=== PATIENT | male | born 1960 | race Caucasian/White ===

== ENCOUNTER → 2017-01-03 | Outpatient (CLI) | payer BC ==
--- NOTE | 2017-01-03 16:54 | US ---
EXAMINATION TYPE: US kidneys/renal and bladder DATE OF EXAM: 01/03/2017 4:10 PM COMPARISON: NONE CLINICAL HISTORY: R10.9 Rt flank pain. 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 No nephrolithiasis is seen. No faiza s are identified. The urinary bladder is anechoic. Bilateral ureteral jets are seen. Inferior impression on the urinary bladder likely due to prostate enlargement IMPRESSION: Prostate enlargement.
== END | disposition home or self-care (01) ==
LOC: RADUSWWP 15:09
PROVIDERS: ATTEND Urology
DX: N40.0 Benign prostatic hyperplasia without lower urinary tract symptoms (principal)
CPT/HCPCS: 76770

== ENCOUNTER → 2018-01-08 | Outpatient (CLI) | payer BC ==
--- NOTE | 2018-01-08 14:30 | MR ---
EXAMINATION TYPE: MR cervical spine wo con DATE OF EXAM: 01/08/2018 COMPARISON: NONE HISTORY: Hypreflexia, early myelopathy TECHNIQUE: Multiplanar, multisequence images of the cervical spine were acquired. C2-C3: Small amount of central focal protrusion is present with mild to moderate anterior thecal sac compression nearing the spinal cord. No cord deformity is evident. No spinal canal stenosis present. C3-C4: There is a broad-based disc bulge with anterior thecal sac compression. No AP spinal canal desi nosis is present. Cord contact is present. Minimal cord flattening may be present. No spinal canal st enosis is present. C4-C5: Broad-based disc bulge is present into the central and left paracentral region. This is in juvencio se approximation with the spinal cord. Some exiting left nerve root displacement is suspected. Severe left and moderate right foraminal narrowing is present. C5-C6: Left paracentral disc herniation is present with broad base extending from the central to left paracentral regions. This has cord contact. Cord deformity is not present. No AP spinal canal stenos is present. Neural foramen is narrowed on the left. C6-C7: There is uncovertebral joint hypertrophy with mild bilateral foraminal narrowing. No spinal ca nal stenosis. No focal disc herniation is evident. C7-T1: No evidence for degenerative disc disease. No disc bulge/herniation or protrusion. No Canal stenosis. Foramina are patent bilaterally. Cervical segments are intact. There is normal alignment. Cervical spinal cord is of normal signal. Craniovertebral junction relationships are within normal limits. IMPRESSION: 1. Left paracentral disc bulging in disc herniation at C5-6 and C4-5. C5-6 this has cord deformity. C ord contact is present at these levels. 2. Central broad-based disc bulge C3-4 with cord contact and minimal cord flattening. 3. Suspected displacement of the exiting nerve root at C4-5 on the left. 4. Multilevel foraminal stenosis most notably C4-5
== END | disposition home or self-care (01) ==
LOC: RADMRIMAIN 13:08
PROVIDERS: ATTEND Psychiatry & Neurology Neurology
DX: M99.71 Connective tissue and disc stenosis of intervertebral foramina of cervical region (principal); M50.21 Other cervical disc displacement, high cervical region; G95.89 Other specified diseases of spinal cord; R29.2 Abnormal reflex
CPT/HCPCS: 72141

== ENCOUNTER → 2018-02-16 | Outpatient (CLI) | payer BC ==
--- NOTE | 2018-02-16 14:46 | MR ---
EXAMINATION TYPE: MR lumbar spine wo con DATE OF EXAM: 02/16/2018 COMPARISON: NONE HISTORY: Spinal stenosis, lumbar region TECHNIQUE: Multiplanar, multisequence images of the lumbar spine were acquired. FINDINGS: The lumbar spine maintains normal vertebral body height and alignment. Bone marrow signal is unremark able other than a T1 and T2 hyperintense L4 vertebral body hemangioma. Multilevel mild disc desiccati on is seen. Conus medullaris is unremarkable terminating at L2. There is an infrarenal distal abdomin al aortic aneurysm proximal to the aortoiliac bifurcation measuring up to 3.1 x 3.0 cm. L1-L2: There is a small right eccentric broad-based disc bulge without spinal canal stenosis or neuro foraminal narrowing. L2-L3: There is a small broad-based disc bulge without spinal canal stenosis or neural foraminal narr owing. L3-L4: Normal disc appearance without desiccation. No herniation, protrusion or disc bulging. No ca nal stenosis is present. Foramina are patent bilaterally. L4-L5: There is a left eccentric broad-based disc bulge and facet arthropathy resulting in mild to mo derate left neural foraminal narrowing. Spinal canal and right neural foramen are patent. L5-S1: There is a broad-based disc bulge resulting in minimal bilateral neural foraminal narrowing. S mela canal is patent. Mild facet arthropathy is also seen. IMPRESSION: 1. No evidence of focal disc herniation or spinal canal stenosis. 2. Multilevel mild degenerative disc disease resulting in mild to moderate left neural foraminal narr owing at L4-L5 on the left and mild bilateral neural foraminal narrowing at L5-S1. 3. Distal abdominal aortic aneurysm measuring up to 3.1 x 3.0 cm. This is partially visualized and co uld be further evaluated with ultrasound or CT.
[2018-02-16 19:12] LABS: Protein, Total 6.6 g/dL (6.2-8.2)
[2018-02-16 19:33] LABS: Folate, Serum 15.3 ng/mL
[2018-02-18 14:31] LABS: Albumin 4.18 g/dL (3.80-4.90); Gamma Globulin 0.76 g/dL (0.70-1.50)
== END | disposition home or self-care (01) ==
LOC: RADMRIMAIN 12:50
PROVIDERS: ATTEND Psychiatry & Neurology Neurology
DX: M99.73 Connective tissue and disc stenosis of intervertebral foramina of lumbar region (principal); M51.36 Other intervertebral disc degeneration, lumbar region; R90.82 White matter disease, unspecified; M54.40 Lumbago with sciatica, unspecified side
CPT/HCPCS: 36415; 72148; 82550; 82607; 82746; 84165; 86038

== ENCOUNTER 2018-10-16 10:01 | Day surgery (SDC) | payer BC ==
[2018-10-14 14:26] VITALS: BMI 21.6
[~2018-10-16 10:01] MED LIST: LACTATED RINGERS 1,000 ML IV SCH
[2018-10-16 10:32] VITALS: TEMP 97.8
[2018-10-16] MEDS ORDERED: LIDOCAINE 1% 20 ML VIAL (10MG/ML) FOR IV START INTRADERMA ONE (10:38)
[2018-10-16] MEDS ORDERED: PROPOFOL 10 MG/ML 20 ML VIAL IV ONE (11:27)
[2018-10-16] MEDS ORDERED: LIDOCAINE 1% INJ 10MG/ML (20 ML MDV) ONE (11:27)
--- NOTE | 2018-10-16 11:35 | P.GSHP ---
History of Present Illness H&P Date: 10/16/18 Chief Complaint: GI bleed This is a 58-year-old male who presents today for colonoscopy. Patient's had issues with GI bleed. Past Medical History Past Medical History: COPD, CVA/TIA, GERD/Reflux, GI Bleed, Prostate Disorder Additional Past Medical History / Comment(s): HX:BPH,small vessel disease of the brain, TIA with residual lt arm weakenss, and "electric shock" sensation occurs from lt hip down to lt foot, lower back pain shooting down lt leg with hx recent falls d/t balance, recent bloody diarrhea, with mucous to stools History of Any Multi-Drug Resistant Organisms: None Reported Past Surgical History: Heart Catheterization, Hernia Repair Additional Past Surgical History / Comment(s): colonoscopy, hernia surgery x2 with mesh, skin graphs x3 on abdomen d/t barboza, graph taken from rt thigh Past Anesthesia/Blood Transfusion Reactions: No Reported Reaction Additional Past Anesthesia/Blood Transfusion Reaction / Comment(s): Pt has never received blood. Smoking Status: Current every day smoker - Past Family History Father Family Medical History: Myocardial Infarction (MT) Additional Family Medical History / Comment(s): Father of a MT at age 48 yrs. Mother Family Medical History: Cancer, Pneumonia Additional Family Medical History / Comment(s): Mother had bladder cancer. She at age 83 yrs of pneumonia. Medications and Allergies Home Medications Medication Instructions Recorded Confirmed Type Cholecalciferol [Vitamin D3] 2,000 unit PO DAILY 12/13/15 10/14/18 History Vitamin B Complex 1 cap PO DAILY 12/13/15 10/14/18 History Aspirin EC [Ecotrin Low Dose] 81 mg PO DAILY #30 tablet. 12/14/15 10/14/18 Rx Nitroglycerin Sl Tabs [Nitrostat] 0.4 mg SUBLINGUAL Q5M PRN #25 tab 12/14/15 Rx Clopidogrel [Plavix] 75 mg PO DAILY 10/14/18 10/14/18 History Gabapentin [Neurontin] 600 mg PO BID 10/14/18 10/16/18 History Ibuprofen [Motrin] 800 mg PO DAILY PRN 10/14/18 10/14/18 History Mirtazapine 7.5 mg PO HS 10/14/18 10/16/18 History Allergies Allergy/AdvReac Type Severity Reaction Status Date / Time No Known Allergies Allergy Verified 10/14/18 14:15 Surgical - Exam Vital Signs Temp Pulse Resp BP Pulse Ox 97.8 F 54 L 16 158/85 100 10/16/18 10:26 10/16/18 10:26 10/16/18 10:26 10/16/18 10:26 10/16/18 10:26 - General well developed, no distress - Eyes PERRL, normal ocular movement - ENT normal pinna - Neck no masses - Respiratory normal expansion - Cardiovascular Rhythm: regular - Abdomen Abdomen: soft, non tender Assessment and Plan Assessment: GI bleed. Perform colonoscopy.
[2018-10-16 11:53] VITALS: RESP 14
--- NOTE | 2018-10-16 12:16 | P.OP ---
Date of Procedure: 10/16/18 Preoperative Diagnosis: GI bleed Postoperative Diagnosis: Internal hemorrhoids Procedure(s) Performed: Colonoscopy Anesthesia: MAC Surgeon: Berlin Benedict Pathology: none sent Condition: stable Disposition: PACU Description of Procedure: The patient's placed on the endoscopy table in the lateral position. He received IV sedation. Digital rectal exam is performed which revealed general hemorrhoids. The prostate was symmetric without nodules. The flexible colonoscope was then placed patient anus and passed throughout the entire colon. The ileocecal valve was visualized. The cecum, ascending and transverse colon appeared normal. In the descending; there were no polyps or diverticula. Scope was then brought back the rectum and this appeared normal. Scope was withdrawn through the anus and there was internal hemorrhoids noted. There is no evidence of GI bleed. The patient's blood in stools presumably from his hemorrhoids. Patient top procedure well and was sent to recovery room stable condition.
[2018-10-16 12:35] VITALS: BP 129/80; PULSE 66
== END 2018-10-16 12:37 | disposition home or self-care (01) ==
LOC: ORWHC2ENDO 10:01
PROVIDERS: ATTEND Surgery
DX: K64.8 Other hemorrhoids (principal); J44.9 Chronic obstructive pulmonary disease, unspecified; K21.9 Gastro-esophageal reflux disease without esophagitis; N40.0 Benign prostatic hyperplasia without lower urinary tract symptoms; I69.334 Monoplegia of upper limb following cerebral infarction affecting left non-dominant side; M54.5 Low back pain; F17.200 Nicotine dependence, unspecified, uncomplicated; Z79.02 Long term (current) use of antithrombotics/antiplatelets; Z79.82 Long term (current) use of aspirin; Z79.899 Other long term (current) drug therapy; Z91.81 History of falling
CPT/HCPCS: 45378; J2001; J2704

== ENCOUNTER → 2019-04-08 | Outpatient (CLI) | payer BC ==
--- NOTE | 2019-04-08 15:22 | CT ---
EXAMINATION TYPE: CT abdomen pelvis w con DATE OF EXAM: 04/08/2019 COMPARISON: None INDICATION: LEFT LOWER QUAD PAIN DLP: 585.8 mGycm, Automated exposure control for dose reduction was used. CONTRAST: 100 mL of Isovue 300. Study performed with Oral Contrast TECHNIQUE: Axial images were obtained from above the diaphragm to the pubic rami in the axial plane a t 5 mm thick sections. Reconstructed images are reviewed on the computer in the coronal plane. FINDINGS: Limited CT sections are obtained the lung bases. There is an area of increased density and pneumonit is within the right middle lobe. Some underlying nodularity may be present. Correlate for pneumonia. Neoplasm is not excluded. This should be followed. Series 4 image 1. Some mild pneumonitis changes in the superior segment right lower lobe. Streak atelectasis is likely present at the right lung base.. CT ABDOMEN: Liver: Liver appears unremarkable. Small amount of ascites is adjacent to the inferior right lobe jamin er. Spleen: Normal Pancreas: Normal Adrenal glands: The adrenal glands are normal. Gallbladder: Normal Kidneys: No masses are evident. No hydronephrosis is present. No cysts are present. Delayed images were obtained through the kidneys, which remain unremarkable. Aorta: Vascular calcification is within the aorta. There is fusiform prominence of the infrarenal no rmal aorta with the greatest AP diameter just above the bifurcation is 3.2 cm. There is some mild fus iform prominence of the right common iliac artery measuring 1.4 cm. Inferior vena cava: Normal. CT PELVIS: Loops of bowel within the abdomen and pelvis are normal. There are loops of bowel which are incom pletely distended or lack oral contrast limiting their evaluation. Appendix: Normal as visualized. This appears to reside near a repaired right inguinal hernia Urinary bladder: Normal. Genitourinary structures: Prostate is prominent. Osseous structures: No suspicious lytic or sclerotic lesions. IMPRESSIONS: 1. There is some complex infiltrate in the right middle lobe which may have some underlying nodulari ty. Neoplasm is not excluded. Pneumonia should be considered. This area should be followed up. 2. Normal appendix near a repaired right inguinal hernia. 3. Fusiform prominence distal abdominal aorta measuring 3.2 cm some mild fusiform prominence of the r ight common iliac artery. 4. Prominent prostate. A Yellow level critical message alert has been initiated for Kellie Enamorado DO via the [employer] Critical Results System on 04/08/2019 3:19 PM. This message alert has been sent to Kellie Enamorado DO via the preferences provided by the clinician for the receipt of Radiology Critical Findings. Message ID [id number].
== END | disposition home or self-care (01) ==
LOC: RADCTMAIN 12:20
PROVIDERS: ATTEND Family Medicine
DX: R91.8 Other nonspecific abnormal finding of lung field (principal); R10.32 Left lower quadrant pain
CPT/HCPCS: 74177; Q9967

== ENCOUNTER 2019-09-11 22:41 | Emergency (ER) | payer BC ==
[2019-09-11 22:55] VITALS: RESP 18
--- NOTE | 2019-09-11 23:19 | CT ---
EXAMINATION TYPE: CT brain celine castillo DATE OF EXAM: 09/11/2019 COMPARISON: None HISTORY: Fall CT DLP: 1294.60 mGycm Automated exposure control for dose reduction was used. TECHNIQUE: CT scan of the head and cervical spine are performed without contrast. FINDINGS: Ventricles have normal size. There is no mass effect nor midline shift. There is no sign of intracranial hemorrhage. The calvarium is intact. There is some mucosal thickening in the ethmoid air cells. There is focal skin thickening over the left posterior temporal bone. There is mild right frontal scalp soft tissue swelling. There is some straightening of the cervical spine. There is degenerative disc space narrowing at C5-6 and C6-7 with spurring. Posterior elements are intact. Skull base is intact. I see no fracture. IMPRESSION: Spondylotic changes in the lower cervical spine. No fracture. No acute intracranial abnormality. Small right frontal scalp soft tissue swelling. Ethmoid sinusitis.
--- NOTE | 2019-09-11 23:57 | ED ---
Fall HPI - General Chief Complaint: Fall Stated Complaint: ETOH Head Injury Time Seen by Provider: 09/11/19 22:50 Source: patient, EMS Mode of arrival: EMS - History of Present Illness Initial Comments: Patient is 59-year-old man who presents to be evaluated after he had a slip and fall at home. The patient states she had been in drinking since afternoon. He states that he lost his balance and struck the side of his face against his desk. Patient does not believe he lost consciousness. He does not have complaints here and actually wants to go home, but states family member prompted him to be seen. He denies head, neck, chest, back or abdomen pain. No extremity injury. 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 Witnessed: yes, by family Place Fall Occurred: home Loss of Consciousness: none Prolonged Down Time?: no Symptoms Prior to Fall: none Location: face Severity scale (1-10): 0 Context: tripped/slipped, alcohol use Associated Symptoms: denies - Related Data Home Medications Medication Instructions Recorded Confirmed Cholecalciferol [Vitamin D3 (25 2,000 unit PO DAILY 12/13/15 10/14/18 Mcg = 1000 Iu)] Vitamin B Complex 1 cap PO DAILY 12/13/15 10/14/18 Clopidogrel [Plavix] 75 mg PO DAILY 10/14/18 10/14/18 Gabapentin [Neurontin] 600 mg PO BID 10/14/18 10/16/18 Ibuprofen [Motrin] 800 mg PO DAILY PRN 10/14/18 10/14/18 Mirtazapine 7.5 mg PO HS 10/14/18 10/16/18 Previous Rx's Medication Instructions Recorded Aspirin EC [Ecotrin Low Dose] 81 mg PO DAILY #30 tablet. 12/14/15 Nitroglycerin Sl Tabs [Nitrostat] 0.4 mg SUBLINGUAL Q5M PRN #25 tab 12/14/15 Allergies Allergy/AdvReac Type Severity Reaction Status Date / Time No Known Allergies Allergy Verified 09/11/19 22:57 Review of Systems ROS Statement: Those systems with pertinent positive or pertinent negative responses have been documented in the HPI. ROS Other: All systems not noted in ROS Statement are negative. Constitutional: Denies: weakness Eyes: Denies: eye pain, vision change ENT: Denies: epistaxis Respiratory: Denies: cough, dyspnea Cardiovascular: Denies: chest pain, syncope Gastrointestinal: Denies: abdominal pain, vomiting Musculoskeletal: Denies: back pain Neurological: Denies: headache, weakness, numbness Hematological/Lymphatic: Reports: other (Text Plavix) Past Medical History Past Medical History: COPD, CVA/TIA, GERD/Reflux, GI Bleed, Prostate Disorder Additional Past Medical History / Comment(s): HX:BPH,small vessel disease of the brain, TIA with residual lt arm weakenss, and "electric shock" sensation occurs from lt hip down to lt foot, lower back pain shooting down lt leg with hx recent falls d/t balance, recent bloody diarrhea, with mucous to stools History of Any Multi-Drug Resistant Organisms: None Reported Past Surgical History: Heart Catheterization, Hernia Repair Additional Past Surgical History / Comment(s): colonoscopy, hernia surgery x2 with mesh, skin graphs x3 on abdomen d/t barboza, graph taken from rt thigh Past Anesthesia/Blood Transfusion Reactions: No Reported Reaction Additional Past Anesthesia/Blood Transfusion Reaction / Comment(s): Pt has never received blood. Past Psychological History: No Psychological Hx Reported Smoking Status: Current every day smoker Past Alcohol Use History: Daily Past Drug Use History: Marijuana - Past Family History Father Family Medical History: Myocardial Infarction (NM) Additional Family Medical History / Comment(s): Father of a NM at age 48 yrs. Mother Family Medical History: Cancer, Pneumonia Additional Family Medical History / Comment(s): Mother had bladder cancer. She at age 83 yrs of pneumonia. General Exam General appearance: alert, in no apparent distress, appears intoxicated Head exam: Present: normocephalic, other (Abrasion to basically nose and to parietal scalp.) Eye exam: Present: normal appearance, PERRL, EOMI, nystagmus. Absent: scleral icterus, conjunctival injection, periorbital swelling, periorbital tenderness ENT exam: Present: normal oropharynx, TM's normal bilaterally, normal external ear exam Neck exam: Present: normal inspection, full ROM. Absent: tenderness Respiratory exam: Present: normal lung sounds bilaterally. Absent: respiratory distress, wheezes, rales, rhonchi, stridor Cardiovascular Exam: Present: regular rate, normal rhythm, normal heart sounds. Absent: systolic murmur, diastolic murmur, rubs, gallop GI/Abdominal exam: Present: soft. Absent: distended, tenderness, guarding, rebound, mass Extremities exam: Present: normal inspection, normal capillary refill. Absent: pedal edema, calf tenderness Back exam: Present: normal inspection. Absent: CVA tenderness (R), CVA tenderness (L), vertebral tenderness Neurological exam: Present: alert, oriented X3, CN II-XII intact. Absent: motor sensory deficit Skin exam: Present: warm, dry, normal color, abrasion (As above). Absent: rash Course Vital Signs 09/11/19 09/12/19 22:51 00:40 Temperature 98 F 97.9 F Pulse Rate 68 65 Respiratory 18 18 Rate Blood Pressure 139/86 137/79 O2 Sat by Pulse 97 98 Oximetry Medical Decision Making - Medical Decision Making This is 59-year-old man presenting after having a slip and fall at home. He is intoxicated and taking Plavix therefore computed tomography scan ordered and no evident injury. The patient does not have laceration requiring suture repair. There are a few superficial abrasions. The patient is feeling well and wanted to go home and as her his associate who can take him he is discharged Disposition Clinical Impression: Fall, Head injury, Alcohol intoxication Disposition: HOME SELF-CARE Condition: Good Instructions (If sedation given, give patient instructions): Head Injury (ED) Is patient prescribed a controlled substance at d/c from ED?: No Referrals: None,Stated [Primary Care Provider] - 1-2 days
[2019-09-12 00:40] VITALS: BP 137/79; PULSE 65; TEMP 97.9
== END 2019-09-12 00:42 | disposition home or self-care (01) ==
LOC: EC 22:41
DX: S00.31XA Abrasion of nose, initial encounter (principal); S00.01XA Abrasion of scalp, initial encounter; F10.129 Alcohol abuse with intoxication, unspecified; F17.200 Nicotine dependence, unspecified, uncomplicated; K21.9 Gastro-esophageal reflux disease without esophagitis; N40.0 Benign prostatic hyperplasia without lower urinary tract symptoms; Z79.02 Long term (current) use of antithrombotics/antiplatelets; Z79.82 Long term (current) use of aspirin; Z79.899 Other long term (current) drug therapy; Z95.5 Presence of coronary angioplasty implant and graft; Z86.73 Personal history of transient ischemic attack (TIA), and cerebral infarction without residual deficits; W01.0XXA Fall on same level from slipping, tripping and stumbling without subsequent striking against object, initial encounter; Y93.89 Activity, other specified; Y92.009 Unspecified place in unspecified non-institutional (private) residence as the place of occurrence of the external cause
CPT/HCPCS: 70450; 72125; 99284

== ENCOUNTER 2020-08-03 09:19 | Day surgery (SDC) | payer BC ==
[2020-08-01 14:42] VITALS: BMI 25.0
[2020-08-03 09:38] VITALS: TEMP 97.8
[2020-08-03] MEDS ORDERED: LIDOCAINE 1% (10MG/ML) FOR IV START INTRADERMA ONE (09:40)
[2020-08-03] MEDS ORDERED: PROPOFOL 10 MG/ML 20 ML VIAL IV ONE (09:51)
[2020-08-03] MEDS ORDERED: LIDOCAINE 1% INJ 10MG/ML (20 ML MDV) ONE (09:51)
--- NOTE | 2020-08-03 10:20 | P.PCN ---
Date of Procedure: 08/03/20 Description of Procedure: BRIEF HISTORY: Patient is a 59-year-old male presenting for outpatient colonoscopy for hemorrhage of the anus and rectum. Patient previously presented to the hospital with CT scan of the abdomen showing diffuse bowel wall thickening after presenting with complaints of blood per rectum. No further episodes. Currently having one to 2 formed bowel movements daily. PROCEDURE PERFORMED: Colonoscopy with polypectomy. PREOPERATIVE DIAGNOSIS: Hemorrhage of the anus and rectum. ESTIMATED BLOOD LOSS: Minimal. IV sedation per Anesthesia. PROCEDURE: After informed consent was obtained, the patient, was brought into the endoscopy unit. IV sedation was administered by Anesthesia under continuous monitoring. Digital rectal examination was normal. Initially the Olympus CF-190 flexible video colonoscope was then inserted in the rectum, gradually advanced into the cecum without any difficulty. Careful examination was performed as the scope was gradually being withdrawn. Ileocecal valve and the appendiceal orifice were visualized and appeared normal. Prep was excellent. Mucosa of the cecum, ascending colon, transverse colon, descending colon, sigmoid colon, and rectum appeared normal, except for multiple small large mouth diverticula in the sigmoid colon. 2 diminutive polyps removed with cold forcep polypectomy from the transverse colon and descending colon measuring 2-3 mm in size. Retroflexion was performed in the rectum and no lesions were seen, low-grade internal hemorrhoids. The patient tolerated the procedure well. IMPRESSION: 2 diminutive polyps removed with cold forcep polypectomy from the transverse colon and descending colon. Moderate sigmoid diverticulosis. Low-grade internal hemorrhoids. RECOMMENDATIONS: Findings of this examination were discussed with the patient and his family. Okay to resume diet. Fiber supplementation. Okay to resume medications. Would recommend repeat colonoscopy in 7 years for screening purposes.
[2020-08-03 10:37] VITALS: BP 143/87; PULSE 58; RESP 16
== END 2020-08-03 11:40 | disposition home or self-care (01) ==
LOC: ORWHC2ENDO 09:19
PROVIDERS: ATTEND Internal Medicine
DX: D12.3 Benign neoplasm of transverse colon (principal); D12.4 Benign neoplasm of descending colon; K57.30 Diverticulosis of large intestine without perforation or abscess without bleeding; K64.8 Other hemorrhoids; I69.354 Hemiplegia and hemiparesis following cerebral infarction affecting left non-dominant side; J44.9 Chronic obstructive pulmonary disease, unspecified; K21.9 Gastro-esophageal reflux disease without esophagitis; F17.200 Nicotine dependence, unspecified, uncomplicated; Z79.02 Long term (current) use of antithrombotics/antiplatelets; Z79.1 Long term (current) use of non-steroidal anti-inflammatories (NSAID); Z79.899 Other long term (current) drug therapy; Z80.52 Family history of malignant neoplasm of bladder
CPT/HCPCS: 88305; 45380; J2001; J2704

== ENCOUNTER 2021-08-10 11:56 | Inpatient (IN) | payer BC, OTHER ==
--- NOTE | 2021-08-10 12:14 | ED ---
Chest Pain HPI - General Chief Complaint: Chest Pain Stated Complaint: chest pain Source: patient, EMS, old records reviewed Mode of arrival: EMS Limitations: no limitations - History of Present Illness Initial Comments: 60-year-old male with past medical history of COPD, CVA who presents to the emergency department with reported chest pain. Patient states that over the past month he has had intermittent episodes of chest pain which are usually related to exertion. States that he has a couple of steps inside of his house and he would have the chest pain when going up and down them. Episodes have gotten more frequent. He states that today he went to lay down around 10:30 and had sudden onset of substernal chest pain with radiation into his left arm. He called EMS. They provided him with 3 nitro and 4 aspirin. He arrives to the emergency department and states that his pain is completely resolved. Patient has had a heart cath in 2016 which demonstrated mild diffuse plaque without any critical stenosis. Denies any cardiac workup since. 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 Patient has associated nausea and diaphoresis. No vomiting. No ripping or tearing sensation to his back. No abdominal pain or changes in his bowel or bladder habits. No alleviating, precipitating or modifying factors - Related Data Home Medications Medication Instructions Recorded Confirmed Clopidogrel [Plavix] 75 mg PO DAILY 10/14/18 08/01/20 Gabapentin [Neurontin] 600 mg PO QID 10/14/18 08/01/20 Ibuprofen [Motrin] 800 mg PO DAILY PRN 10/14/18 08/01/20 DULoxetine HCL [Cymbalta] 60 mg PO BID 08/01/20 08/01/20 Pantoprazole Sodium 40 mg PO QAM 08/01/20 08/01/20 Previous Rx's Medication Instructions Recorded Nitroglycerin Sl Tabs [Nitrostat] 0.4 mg SUBLINGUAL Q5M PRN #25 tab 12/14/15 Allergies Allergy/AdvReac Type Severity Reaction Status Date / Time No Known Allergies Allergy Verified 08/10/21 14:14 Review of Systems ROS Statement: Those systems with pertinent positive or pertinent negative responses have been documented in the HPI. ROS Other: All systems not noted in ROS Statement are negative. EKG Findings - EKG Comments: EKG Findings:: Demonstrates normal sinus rhythm with a ventricular rate of 65. NH interval 130. QRS 74. QTC of 403. No acute ST segment elevations. Mild ST depression in lead 2 Past Medical History Past Medical History: COPD, CVA/TIA, GERD/Reflux, GI Bleed, Prostate Disorder Additional Past Medical History / Comment(s): past seizures, ,small vessel disease of the brain, TIA with residual lt arm weakness, neuropathy, lower back pain shooting down lt leg with falls d/t balance, IBS, occ diarrhea and blood in stool, occ constipation, History of Any Multi-Drug Resistant Organisms: None Reported Past Surgical History: Heart Catheterization, Hernia Repair Additional Past Surgical History / Comment(s): colonoscopy, hernia surgery x2 with mesh, skin graphs x3 on abdomen d/t barboza, graph taken from rt thigh Past Anesthesia/Blood Transfusion Reactions: No Reported Reaction Additional Past Anesthesia/Blood Transfusion Reaction / Comment(s): . Past Psychological History: No Psychological Hx Reported Smoking Status: Current every day smoker Past Alcohol Use History: Daily Past Drug Use History: Marijuana - Past Family History Mother Family Medical History: Cancer Additional Family Medical History / Comment(s): bladder cancer. General Exam Limitations: no limitations Course Vital Signs 08/10/21 08/10/21 08/10/21 12:02 12:14 13:30 Temperature 97.7 F Pulse Rate 68 60 Respiratory 18 18 16 Rate Blood Pressure 118/85 112/76 O2 Sat by Pulse 94 L 97 Oximetry Chest Pain MDM - MDM Upon arrival patient is placed into room 9. A thorough history and physical exam was performed. 12 lead EKG was performed which demonstrates no acute ST segment elevation. Patient placed on continuous pulse ox and cardiac monitoring. Remains pain free. Laboratory studies are performed. Troponin 0.025. Chest x-ray demonstrates discoid atelectasis or infiltrate left lower lobe. I did discuss the results with the patient. He does state that he has had a cough and therefore I will give him 1 dose of antibiotics for coverage. I did recommend admission to the hospital in order to trend his troponins for which the patient did agree to. Spoke with Stella BHANDARI who agreed to admit the patient. Cardiology placed on consult. He is currently remaining pain-free awaiting a bed on the floor Disposition Clinical Impression: Chest pain Disposition: ADMITTED IP TO THIS HOSP Condition: Serious Is patient prescribed a controlled substance at d/c from ED?: No Decision to Admit Reason: Admit from EC Decision Date: 08/10/21 Decision Time: 14:02
--- NOTE | 2021-08-10 12:57 | XR ---
EXAMINATION TYPE: XR chest 2V DATE OF EXAM: 08/10/2021 COMPARISON: NONE HISTORY: Shortness of breath TECHNIQUE: Frontal and lateral views of the chest are obtained. FINDINGS: Scattered senescent parenchymal changes noted. Hyperinflation compatible with COPD. Discoid atelectasis or infiltrate left lower lobe. Correlate clinically. Heart size is stable. Mediastinal structures are stable and grossly unremarkable. No evidence for hilar prominence. Degenerative changes dorsal spine. IMPRESSION: 1. Discoid atelectasis or infiltrate left lower lobe. Correlate clinically.
[2021-08-10 13:00] LABS: ALT 15 U/L (4-49); AST 19 U/L (17-59); African American GFR (CKD) >90 (>60 ml/min/1.73 sqM); Albumin 3.5 g/dL (3.5-5.0); Alkaline Phosphatase 101 U/L (38-126); Anion Gap 5 mmol/L; Blood Urea Nitrogen 19 mg/dL (9-20); Carbon Dioxide 24 mmol/L (22-30); Chloride 108 mmol/L (98-107); Glucose 93 mg/dL (74-99); Lipase 101 U/L (23-300); Magnesium 1.8 mg/dL (1.6-2.3); Non-African American GFR(CKD) 84 (>60 ml/min/1.73 sqM); Sodium 137 mmol/L (137-145); Total Bilirubin 0.3 mg/dL (0.2-1.3); Total Protein 6.2 g/dL (6.3-8.2)
[2021-08-10 13:03] LABS: Partial Thromboplastin Time 23.5 sec (22.0-30.0); Prothrombin Time 10.7 sec (9.0-12.0)
[2021-08-10 13:23] LABS: Basophils # (A) 0.1 k/uL (0-0.2); Basophils % (A) 0 %; Eosinophils # (A) 0.3 k/uL (0-0.7); Eosinophils % (A) 2 %; HGB 16.2 gm/dL (13.0-17.5); Lymphocytes # (A) 1.6 k/uL (1.0-4.8); Lymphocytes % (A) 10 %; MCHC 33.1 g/dL (31.0-37.0); MCV 96.8 fL (80.0-100.0); Mean Platelet Volume 7.2; Monocytes # (A) 0.6 k/uL (0-1.0); Monocytes % (A) 4 %; Neutrophils # (A) 12.4 k/uL (1.3-7.7); Neutrophils % (A) 83 %; Platelet Count 257 k/uL (150-450); RBC 5.06 m/uL (4.30-5.90); RDW 12.6 % (11.5-15.5); WBC 15.1 k/uL (3.8-10.6)
[2021-08-10] MEDS ORDERED: ACETAMINOPHEN TAB 325 MG TAB PO STA (13:40)
[2021-08-10] MEDS ORDERED: NALOXONE 0.4 MG/ML 1 ML VIAL IV PRN (14:02)
[2021-08-10] MEDS ORDERED: HEPARIN SODIUM 1,000 UN/ML (10ML VL) IV ONE (14:19)
[2021-08-10] MEDS ORDERED: HEPARIN SODIUM 1,000 UN/ML (10ML VL) IV PRN (14:19)
[2021-08-10] MEDS ORDERED: AZITHROMYCIN 500 MG in SODIUM CHLORIDE 0.9% 250 ML IVPB STA (14:21)
[2021-08-10] MEDS ORDERED: cefTRIAXone IN SWFI 1,000 MG/10 ML SYRINGE IVP STA (14:21)
[2021-08-10] MEDS ORDERED: HEPARIN SOD,PORK IN 0.45% NACL 25,000 UNIT in 0.45% NACL 1 250ML.BAG IV SCH (14:30)
[2021-08-10] MEDS ORDERED: HYDROcodone/APAP 5-325MG 1 EACH TAB PO STA (16:54)
[2021-08-10] MEDS: NITROGLYCERIN OINT 1 INCH/GM PACKET TOPICAL SCH ×2 (17:00→23:10)
[2021-08-10] MEDS ORDERED: GABAPENTIN 300 MG CAP PO PRN (18:07)
[2021-08-10] MEDS: BUTALB/APAP/CAFF 50-325-40MG TAB PO PRN (18:43)
[2021-08-10] MEDS ORDERED: TEMAZEPAM 15 MG CAP PO PRN (20:48)
[2021-08-10] MEDS: ATORVASTATIN 80 MG TAB PO SCH (21:12)
[2021-08-10] MEDS: METOPROLOL TARTRATE 12.5 MG TAB PO SCH (21:12)
[2021-08-10] MEDS: HYDROmorphone 0.5 MG/0.5 ML SYRINGE IVP PRN (21:12)
[2021-08-10] MEDS: NICOTINE 14MG/24HR PATCH TRANSDERM SCH (21:38)
--- NOTE | 2021-08-10 22:16 | HP ---
HISTORY AND PHYSICAL I am covering for Dr. Enamorado. CHIEF COMPLAINT: Chest pain. HISTORY OF PRESENT ILLNESS: This 60-year-old gentleman with a past medical history of COPD, CVA, GERD, GI bleed, history of prostate disorder, history of seizure disorder, cardiac catheterization, hernia repair, being followed by Dr. Enamorado in the outpatient setting, was complaining of chest pain. The patient had on and off chest pains for the past several days which are related to exertion, which improved spontaneously. This morning the patient woke up with severe chest pain, 10/10 in intensity, which was constricting in nature and felt in the anterior part and left side of the chest radiating to the left shoulder with associated profuse sweating, and the patient came to [facility] and was admitted for further evaluation and treatment. Nitroglycerin gave some relief, but the patient is complaining of severe headache at this time. Initial troponins were 0.025 and 0.080. The EKG, which I reviewed personally, showed some ST-T changes and left axis deviation. There is no history of any fever, rigors or chills at this time. Patient was admitted for further evaluation. IV heparin was started. Cardiology consultation has been sought. PAST MEDICAL HISTORY: COPD, CVA, GERD, GI bleed, prostate disorder, past seizure, cardiac incision previously. MEDICATIONS: Excedrin and Neurontin. Doses are reviewed. ALLERGIES: NONE. FAMILY HISTORY: History of bladder cancer. SOCIAL HISTORY: History of smoking. History of THC. REVIEW OF SYSTEMS: ENT: No diminished hearing. No diminished vision. CARDIOVASCULAR SYSTEM: As mentioned earlier. RESPIRATORY SYSTEM: As mentioned earlier. GI: No nausea, vomiting, diarrhea. : No dysuria. NERVOUS SYSTEM: No numbness, weakness. ALLERGY/IMMUNOLOGY: No asthma or hay fever. MUSCULOSKELETAL: As mentioned earlier. HEMATOLOGY/ONCOLOGY: No history of anemia. ENDOCRINE: No history of diabetes, hypothyroidism. CONSTITUTIONAL: As mentioned earlier. DERMATOLOGY: Negative. RHEUMATOLOGY: Negative. PSYCHIATRY: As mentioned earlier. PHYSICAL EXAMINATION: Patient alert and oriented x3. Pulse 59, blood pressure 140/81, respiration 18, temperature 97.9, pulse ox 99% on room air. HEENT: Conjunctivae normal. NECK: No jugular venous distention. CARDIOVASCULAR: S1, S2 muffled. RESPIRATION: Breath sounds diminished at the bases. A few scattered rhonchi. No crackles. ABDOMEN: Soft, non-tender. No mass palpable. LEGS: No edema. No swelling. NERVOUS SYSTEM: Higher functions as mentioned earlier. Moves all 4 limbs. No focal motor or sensory deficit. LYMPHATICS: No lymph node palpable in neck, axillae or groin. SKIN: No ulcer, rash, bleeding. JOINTS: No active deforming arthropathy. LAB STUDIES: WBC 15.2, hemoglobin 16.2. Troponin 0.6. ASSESSMENT: 1. Chest pain with possible acute fmz-QM-zjdosid-elevation myocardial infarction. 2. Increased white count, possibly reactive. 3. Chronic obstructive pulmonary disease. 4. Cerebrovascular accident, transient ischemic attack history. 5. History of gastroesophageal reflux disease. 6. History of gastrointestinal bleed. 7. History of prostate disorder. 8. History of seizure disorder. 9. History of transient ischemic attack. 10.History of irritable bowel syndrome. 11.History of cardiac catheterization. 12.History of colonoscopy. 13.Continued ongoing nicotine dependence. 14.History of THC. 15.FULL CODE. RECOMMENDATIONS AND DISCUSSION: In this 60-year-old gentleman who presented with multiple complex medical issues, we will monitor the patient closely, continue the current medications, continue symptomatic treatment. Initiate IV heparin, aspirin, beta blockers, Lipitor. Cardiology consultation. Prognosis is guarded because of the multiple complex medical issues. Further recommendations to follow. The patient will require further evaluation to delineate the coronary anatomy, including cardiac catheterization. Will continue to monitor. Prognosis guarded. Discussed with the patient. A copy of this dictation is being forwarded to Dr. Enamorado, who is the primary physician. MMSHANELL / PASCUALN: [id number] /
[2021-08-10] MEDS: ALPRAZolam 0.25 MG TAB PO PRN (23:12)
[2021-08-11 04:52] LABS: Basophils # (A) 0.1 k/uL (0-0.2); Basophils % (A) 1 %; Eosinophils # (A) 0.4 k/uL (0-0.7); Eosinophils % (A) 5 %; HCT 49.4 % (39.0-53.0); HGB 16.5 gm/dL (13.0-17.5); Lymphocytes # (A) 3.7 k/uL (1.0-4.8); Lymphocytes % (A) 39 %; MCHC 33.4 g/dL (31.0-37.0); MCV 95.8 fL (80.0-100.0); Mean Platelet Volume 7.1; Monocytes # (A) 0.6 k/uL (0-1.0); Monocytes % (A) 6 %; Neutrophils # (A) 4.4 k/uL (1.3-7.7); Neutrophils % (A) 47 %; Platelet Count 253 k/uL (150-450); RBC 5.16 m/uL (4.30-5.90); RDW 13.2 % (11.5-15.5); WBC 9.3 k/uL (3.8-10.6)
[2021-08-11 05:17] LABS: African American GFR (CKD) >90 (>60 ml/min/1.73 sqM); Anion Gap 6 mmol/L; Blood Urea Nitrogen 14 mg/dL (9-20); Calcium 8.8 mg/dL (8.4-10.2); Carbon Dioxide 23 mmol/L (22-30); Chloride 108 mmol/L (98-107); Glucose 83 mg/dL (74-99); Non-African American GFR(CKD) >90 (>60 ml/min/1.73 sqM); Partial Thromboplastin Time 45.4 sec (22.0-30.0); Potassium 4.8 mmol/L (3.5-5.1); Prothrombin Time 10.6 sec (9.0-12.0); Sodium 137 mmol/L (137-145)
[2021-08-11] MEDS: HYDROmorphone 0.5 MG/0.5 ML SYRINGE IVP PRN ×2 (06:32→13:27)
[2021-08-11] MEDS: PANTOPRAZOLE 40 MG TABLET PO SCH (06:32)
[2021-08-11] MEDS: NITROGLYCERIN OINT 1 INCH/GM PACKET TOPICAL SCH (08:13)
[2021-08-11] MEDS: Acetaminophen-Codeine 300-30mg TAB PO PRN (08:13)
[2021-08-11] MEDS: NICOTINE 14MG/24HR PATCH TRANSDERM SCH (08:14)
--- NOTE | 2021-08-11 09:07 | P.CRDCN ---
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 Patient gives history of having episodes of chest pain for the past month that lasted 4-5 minutes and usually go away on their own. Yesterday he developed chest pain in the left side of his chest when up to his shoulder. No radiation to his neck. He felt short of breath and sweaty. He states his systolic house was sitting on his chest. This time the pain did not resolve on its own. Patient had previous heart catheterization in 2016 which revealed mild plaque. Echocardiogram at that time showed an EF of 60-65% with mild mitral regurgitation. Patient does not follow up with flooring sales manager. Patient does smoke 2 packs of cigarettes per day for 50 years, regular marijuana use. He also has history of alcohol abuse drinking every day but has cut back over the past 1 month due to "stomach issues." Patient has history that his sister recently of congestive heart failure. His father at age 48 from myocardial infarction grandfather at age 76 from myocardial infarction. He came into [facility] as an emergency center for evaluation was found to have troponins of 0.025, 0.080, 0.092. Other lab work of note was initial white count of 15.1 which resolved to 9.3. Chloride 108. BUN 19 and creatinine 0.98. Liver function tests were normal. Coronavirus PCR not detected. He was afebrile, heart rate in the 60s, blood pressure 118/85, pulse ox 94% on room air. EKG revealed sinus rhythm. Chest x-ray reveals discoid atelectasis or infiltrate left lower lobe. Patient's been started on heparin drip, Nitropaste and Lopressor which was held this morning due to heart rate of 47. At the time of evaluation, chest pain is minimal. He is complaining of significant headache since he was started on Nitropaste yesterday. Review Of Systems: Constitutional: No fever, no chills. No weakness, fatigue or lethargy. EENT: Reports headache. No dizziness. Lungs: No shortness of breath, cough, no sputum production. No wheezing. Cardiovascular: Reports chest pain, no lower extremity edema. No palpitations. No paroxysmal nocturnal dyspnea. No orthopnea. No lightheadedness or dizziness. No syncopal episodes. Abdominal: No abdominal pain. Reports nausea, denies vomiting. No diarrhea. No constipation. No bloody or tarry stools.. No loss of appetite. Musculoskeletal: No myalgias. No muscle weakness, no gait dysfunction, no frequent falls. Integumentary: No wounds, no lesions. No rash or pruritus. Neurologic: No aphasia. No facial droop. No change in mentation. No head injury. Endocrine: No abnormal blood sugars. Physical examination: Gen: This is a 60-year-old male. He is resting in bed appears to be comfortable and in no acute distress. VS: Afebrile, heart rate 47, blood pressure 134/89, pulse ox 96% on room air HEENT: Head is atraumatic, normocephalic. Pupils equal, round. Sclerae is anicteric. NECK: Supple. No JVD. No lymphadenopathy. No thyromegaly. LUNGS: A few scattered rhonchi. No intercostal retractions. HEART: Distant heart sounds. Regular rate and rhythm. No murmur. ABDOMEN: Soft. Bowel sounds are present. No masses. No tenderness. EXTREMITIES: No pedal edema. No calf tenderness. Dorsalis pedis +2 bilaterally NEUROLOGICAL: Patient is awake, alert and oriented x3. Cranial nerves 2 through 12 are grossly intact. Assessment: Non-ST elevated myocardial infarction Tobacco use and dependence Daily marijuana use Possible left lower lobe pneumonia History of alcohol abuse Family history of coronary artery disease Plan: Continue heparin drip, Nitropaste Patient was started on Lipitor 80 mg at bedtime, Lopressor 12.5 mg twice daily. Obtain 2-D echocardiogram and Doppler study to assess cardiac structure and function Patient will be scheduled for heart catheterization today Further recommendations to follow based upon clinical course Thank you kindly for this consultation. Nurse practitioner note has been reviewed, I agree with documented findings and plan of care. Patient was seen and examined. Past Medical History Past Medical History: COPD, CVA/TIA, GERD/Reflux, GI Bleed, Prostate Disorder Additional Past Medical History / Comment(s): past seizures, small vessel disease of the brain, TIA with residual lt arm weakness, neuropathy, lower back pain shooting down lt leg with falls d/t balance, IBS, occ diarrhea and blood in stool, occ constipation, History of Any Multi-Drug Resistant Organisms: None Reported Past Surgical History: Heart Catheterization, Hernia Repair Additional Past Surgical History / Comment(s): colonoscopy, hernia surgery x2 with mesh, skin graphs x3 on abdomen d/t barboza, graph taken from rt thigh Past Anesthesia/Blood Transfusion Reactions: No Reported Reaction Additional Past Anesthesia/Blood Transfusion Reaction / Comment(s): . Past Psychological History: No Psychological Hx Reported Additional Psychological History / Comment(s): . Smoking Status: Current every day smoker Past Alcohol Use History: Daily Additional Past Alcohol Use History / Comment(s): 2 ppd smoker. started smoking age 12. drinks 3-4 beer daily Past Drug Use History: Marijuana - Past Family History Mother Family Medical History: Cancer Additional Family Medical History / Comment(s): bladder cancer. Medications and Allergies Home Medications Medication Instructions Recorded Confirmed Type Gabapentin [Neurontin] 600 mg PO QID PRN 10/14/18 08/10/21 History [id number] 1 tab PO TID PRN 08/10/21 08/10/21 History [Excedrin] Allergies Allergy/AdvReac Type Severity Reaction Status Date / Time No Known Allergies Allergy Verified 08/10/21 14:14 Physical Exam Vitals: Vital Signs Temp Pulse Pulse Resp BP BP Pulse Ox 08/11/21 08:10 97.7 F 47 L 16 134/89 96 08/11/21 02:00 98.0 F 50 L 18 143/75 96 08/10/21 20:00 97.6 F 59 L 18 121/74 95 08/10/21 15:51 97.9 F 59 L 18 145/81 99 08/10/21 14:23 67 16 117/87 98 08/10/21 13:30 60 16 112/76 97 08/10/21 12:14 18 08/10/21 12:02 97.7 F 68 18 118/85 94 L Intake and Output 08/10/21 08/11/21 08/11/21 22:59 06:59 14:59 Intake Total 48.718 Output Total 910 Balance 48.718 -910 Intake: Intake, IV Titration 48.718 Amount Heparin Sod,Pork in 0.45% 48.718 NaCl 25,000 unit In 0.45 % NaCl 1 250ml.bag @ 12 UNITS/KG/HR 8.165 mls/hr IV .Q24H [facility] Rx#: [id number] Output: Urine 910 Other: Voiding Method Urinal Urinal # Voids 1 1 Weight 68.039 kg 75.4 kg Results 08/11/21 03:57 08/11/21 03:57 Cardiac Enzymes 08/10/21 08/10/21 08/10/21 Range/Units 12:39 12:39 15:52 AST 19 (17-59) U/L Troponin I 0.025 0.080 H* (0.000-0.034) ng/mL 08/10/21 Range/Units 20:19 AST (17-59) U/L Troponin I 0.092 H* (0.000-0.034) ng/mL Coagulation 08/10/21 08/10/21 08/11/21 Range/Units 12:39 20:19 03:57 PT 10.7 10.6 (9.0-12.0) sec APTT 23.5 34.8 H 45.4 H (22.0-30.0) sec CBC 08/10/21 08/11/21 Range/Units 12:39 03:57 WBC 15.1 H 9.3 (3.8-10.6) k/uL RBC 5.06 5.16 (4.30-5.90) m/uL Hgb 16.2 16.5 (13.0-17.5) gm/dL Hct 49.0 49.4 (39.0-53.0) % Plt Count 257 253 (150-450) k/uL Comprehensive Metabolic Panel 08/10/21 08/11/21 Range/Units 12:39 03:57 Sodium 137 137 (137-145) mmol/L Potassium 4.0 4.8 (3.5-5.1) mmol/L Chloride 108 H 108 H (98-107) mmol/L Carbon Dioxide 24 23 (22-30) mmol/L BUN 19 14 (9-20) mg/dL Creatinine 0.98 0.71 (0.66-1.25) mg/dL Glucose 93 83 (74-99) mg/dL Calcium 9.0 8.8 (8.4-10.2) mg/dL AST 19 (17-59) U/L ALT 15 (4-49) U/L Alkaline Phosphatase 101 (38-126) U/L Total Protein 6.2 L (6.3-8.2) g/dL Albumin 3.5 (3.5-5.0) g/dL Current Medications Generic Name Dose Route Start Last Admin Trade Name Freq PRN Reason Stop Dose Admin Acetaminophen/Butalbital/Caffeine 1 each 08/10/21 18:08 08/10/21 18:43 Butalb/Apap/Caff 50-325-40mg Tab PO 1 each Q6HR PRN Administration Headache Acetaminophen/Codeine Phosphate 1 each 08/10/21 21:02 08/11/21 08:13 Acetaminophen-Codeine 300-30mg Tab PO 1 each Q6HR PRN Administration Pain Alprazolam 0.25 mg 08/10/21 20:48 08/10/21 23:12 Alprazolam 0.25 Mg Tab PO 0.25 mg TID PRN Administration Anxiety Atorvastatin Calcium 80 mg 08/10/21 21:00 08/10/21 21:12 Atorvastatin 80 Mg Tab PO 80 mg HS ÁNGEL Administration Gabapentin 600 mg 08/10/21 18:07 Gabapentin 300 Mg Cap PO QID PRN Pain Heparin Sodium (Porcine) 0 unit 08/10/21 14:19 Heparin Sodium 1,000 Un/Ml (10ml Vl) IV PER PROTOCOL PRN Low PTT Protocol Hydromorphone HCl 0.5 mg 08/10/21 21:01 08/11/21 06:32 Hydromorphone 0.5 Mg/0.5 Ml Syringe IVP 0.5 mg Q3HR PRN Administration Pain Heparin Sodium/Sodium Chloride 250 mls @ 8.165 mls/hr 08/10/21 14:30 08/10/21 21:02 25,000 unit/ Sodium Chloride IV 15 units/kg/hr .Q24H ÁNGEL 10.206 mls/hr Titration Protocol 12 UNITS/KG/HR Metoprolol Tartrate 12.5 mg 08/10/21 21:00 08/10/21 21:12 Metoprolol Tartrate 12.5 Mg Tab PO 12.5 mg BID ÁNGEL Administration Naloxone HCl 0.2 mg 08/10/21 14:02 Naloxone 0.4 Mg/Ml 1 Ml Vial IV Q2M PRN Opioid Reversal Nicotine 1 patch 08/10/21 21:00 08/11/21 08:14 Nicotine 14mg/24hr Patch TRANSDERM Not Given DAILY [facility] Nitroglycerin 1 inch 08/10/21 16:45 08/11/21 08:13 Nitroglycerin Oint 1 Inch/Gm Packet TOPICAL 1 inch Q8HR ÁNGEL Administration Pantoprazole Sodium 40 mg 08/11/21 07:30 08/11/21 06:32 Pantoprazole 40 Mg Tablet PO 40 mg [id number] ÁNGEL Administration Temazepam 15 mg 08/10/21 20:48 Temazepam 15 Mg Cap PO HS PRN Insomnia Intake and Output 08/10/21 08/11/21 08/11/21 22:59 06:59 14:59 Intake Total 48.718 Output Total 910 Balance 48.718 -910 Intake: Intake, IV Titration 48.718 Amount Heparin Sod,Pork in 0.45% 48.718 NaCl 25,000 unit In 0.45 % NaCl 1 250ml.bag @ 12 UNITS/KG/HR 8.165 mls/hr IV .Q24H [facility] Rx#: [id number] Output: Urine 910 Other: Voiding Method Urinal Urinal # Voids 1 1 Weight 68.039 kg 75.4 kg 08/11/21 03:57 08/11/21 03:57
[2021-08-11] MEDS: BUTALB/APAP/CAFF 50-325-40MG TAB PO PRN (11:22)
[2021-08-11] MEDS: METOPROLOL TARTRATE 12.5 MG TAB PO SCH ×2 (11:31→19:55)
[2021-08-11] MEDS ORDERED: VERAPAMIL 2.5 MG/ML 2 ML AMP ONE (11:55)
[2021-08-11] MEDS ORDERED: LIDOCAINE 1% INJ 10MG/ML (20 ML MDV) ONE (11:55)
[2021-08-11] MEDS ORDERED: fentaNYL (PF) 50 MCG/ML 2 ML AMP ONE (11:56)
[2021-08-11] MEDS ORDERED: IV FLUID CONTINUATION 1,000 ML IV ONE (12:20)
[2021-08-11] MEDS ORDERED: ASPIRIN 325 MG TAB PO ONE (12:32)
[2021-08-11] MEDS ORDERED: ASPIRIN 325 MG TAB ONE (12:32)
[2021-08-11] MEDS ORDERED: MIDAZOLAM 2 MG/2 ML VIAL IVP ONE (12:34)
[2021-08-11] MEDS ORDERED: fentaNYL (PF) 50 MCG/ML 2 ML AMP IVP ONE (12:34)
[2021-08-11] MEDS ORDERED: LIDOCAINE 1% INJ 10MG/ML (20 ML MDV) SQ ONE (12:42)
[2021-08-11] MEDS ORDERED: HEPARIN SODIUM 1,000 UN/ML (10ML VL) ONE (12:49)
[2021-08-11] MEDS ORDERED: VERAPAMIL SYRINGE (5 MG/10 ML) INTRAARTER ONE (12:49)
[2021-08-11] MEDS ORDERED: HEPARIN SODIUM 1,000 UN/ML (10ML VL) IVP ONE (12:51)
[2021-08-11] MEDS ORDERED: IOPAMIDOL-370 125ML BTL INJ ONE (13:03)
[2021-08-11] MEDS ORDERED: RX INFO: IV CONTRAST WAS GIVEN 1 EACH MISC MISCELLANE PRN (13:16)
[2021-08-11] MEDS: SODIUM CHLORIDE 0.9% 1,000 ML IV SCH (13:31)
--- NOTE | 2021-08-11 16:32 | ECHOF ---
Referral Reason:elevated trops MEASUREMENTS -------- HEIGHT: 172.7 cm WEIGHT: 75.3 kg BP: RVIDd: 2.5 cm (< 3.3) IVSd: 1.4 cm (0.6 - 1.1) LVIDd: 2.9 cm (3.9 - 5.3) LVPWd: 1.4 cm (0.6 - 1.1) IVSs: 1.7 cm LVIDs: 1.2 cm LVPWs: 1.8 cm LAESV Index (A-L): 12.33 ml/m Ao Diam: 3.3 cm (2.0 - 3.7) AV Cusp: 1.9 cm (1.5 - 2.6) LA Diam: 2.7 cm (2.7 - 3.8) MV EXCURSION: 12.495 mm (> 18.000) MV EF SLOPE: 123 mm/s (70 - 150) EPSS: 0.6 cm MV E Ascencion: 0.68 m/s MV DecT: 306 ms MV A Ascencion: 0.63 m/s MV E/A Ratio: 1.09 RAP: 5.00 mmHg RVSP: 21.11 mmHg FINDINGS -------- This was a technically good study. The left ventricular size is normal. There is moderate concentric left ventricular hypertrophy. O verall left ventricular systolic function is normal with, an EF between 55 - 60 %. The diastolic fi lling pattern is normal for the age of the patient 8.76. The right ventricle is normal in size. The left atrial size is normal. Normal LA size by volume 22+/-6 ml/m2. The right atrial size is normal. The aortic valve is trileaflet and appears structurally normal. The mitral valve is normal. There is trace mitral regurgitation. The tricuspid valve appears structurally normal. Trace tricuspid regurgitation present. Right kendrick tricular systolic pressure is normal at < 35 mmHg. There is no pulmonic regurgitation present. The aortic root size is normal. Normal inferior vena cava with normal inspiratory collapse consistent with estimated right atrial pre ssure of 5 mmHg. There is no pericardial effusion. CONCLUSIONS -------- 1. The left ventricular size is normal. 2. There is moderate concentric left ventricular hypertrophy. 3. Overall left ventricular systolic function is normal with, an EF between 55 - 60 %. 4. The diastolic filling pattern is normal for the age of the patient 8.76 5. There is trace mitral regurgitation. 6. Trace tricuspid regurgitation present. 7. There is no pericardial effusion. MEDIA JOB TITLES: Ragini Tomas RDCS
--- NOTE | 2021-08-11 19:52 | PN ---
PROGRESS NOTE DATE OF SERVICE: 08/11/2021 This 60-year-old gentleman admitted with chest pain had acute eup-JF-szqxxlv-elevation myocardial infarction. Patient was scheduled for cardiac catheterization today and 2D echo with Doppler showed ejection fraction about 55% to 60%. No chest pain. No palpitations. No fever. PHYSICAL EXAMINATION: Alert and oriented x3. Pulse is 53, blood pressure 130/66, respiration normal, temperature normal, pulse ox 92% on room air. HEENT: Conjunctivae normal. NECK: No jugular venous distention. CARDIOVASCULAR: S1, S2 muffled. RESPIRATION: Breath sounds diminished at the bases. ABDOMEN: Soft, nontender. NERVOUS SYSTEM: No focal deficit. LABS: CBC within normal limits. Troponins are noted. ASSESSMENT: 1. Chest pain, possible acute fgo-IR-nybbdzh-elevation myocardial infarction. 2. Increased white count, possibly reactive. 3. Chronic obstructive pulmonary disease. 4. Cerebrovascular accident, transient ischemic attack history. 5. History of gastroesophageal reflux disease. 6. History of gastrointestinal bleed. 7. History of prostate disorder. 8. History of seizure disorder. 9. History of transient ischemic attack. 10.History of irritable bowel syndrome. 11.History of cardiac catheterization. 12.History of colonoscopy. 13.Continued ongoing nicotine dependence. 14.History of THC. 15.Bradycardia. 16.FULL CODE. RECOMMENDATIONS AND DISCUSSION: I recommend to continue current medications, continue with symptomatic treatment. Cardiac catheterization. Continue with antiplatelet agents, antilipidic agents. The patient had significant bradycardia. Beta blockers to be held if there is significant bradycardia. Prognosis guarded. Further recommendations to follow. MMODL / IJN: [id number] /
[2021-08-11] MEDS: ALPRAZolam 0.25 MG TAB PO PRN (20:04)
[2021-08-11] MEDS: ATORVASTATIN 80 MG TAB PO SCH (20:04)
[2021-08-12 03:57] LABS: Basophils # (A) 0.1 k/uL (0-0.2); Basophils % (A) 1 %; Eosinophils # (A) 0.5 k/uL (0-0.7); Eosinophils % (A) 6 %; HGB 17.1 gm/dL (13.0-17.5); Lymphocytes # (A) 2.9 k/uL (1.0-4.8); Lymphocytes % (A) 30 %; MCH 31.5 pg (25.0-35.0); MCHC 32.9 g/dL (31.0-37.0); Mean Platelet Volume 6.7; Monocytes # (A) 0.6 k/uL (0-1.0); Monocytes % (A) 6 %; Neutrophils # (A) 5.4 k/uL (1.3-7.7); Neutrophils % (A) 57 %; Platelet Count 249 k/uL (150-450); RBC 5.42 m/uL (4.30-5.90); RDW 12.6 % (11.5-15.5); WBC 9.5 k/uL (3.8-10.6)
[2021-08-12 04:13] LABS: African American GFR (CKD) >90 (>60 ml/min/1.73 sqM); Anion Gap 7 mmol/L; Blood Urea Nitrogen 14 mg/dL (9-20); Calcium 9.4 mg/dL (8.4-10.2); Carbon Dioxide 22 mmol/L (22-30); Chloride 105 mmol/L (98-107); Glucose 85 mg/dL (74-99); Non-African American GFR(CKD) >90 (>60 ml/min/1.73 sqM); Potassium 4.5 mmol/L (3.5-5.1); Sodium 134 mmol/L (137-145)
[2021-08-12] MEDS: SODIUM CHLORIDE 0.9% 1,000 ML IV SCH (04:30)
[2021-08-12] MEDS: PANTOPRAZOLE 40 MG TABLET PO SCH (06:26)
[2021-08-12 08:33] VITALS: PULSE 57; RESP 18; TEMP 97.7
[2021-08-12] MEDS: Acetaminophen-Codeine 300-30mg TAB PO PRN (09:30)
[2021-08-12] MEDS: NICOTINE 14MG/24HR PATCH TRANSDERM SCH (10:33)
[2021-08-12 11:33] VITALS: BP 125/89
--- NOTE | 2021-08-12 12:36 | P.PN ---
Subjective Progress Note Date: 08/12/21 History of present illness: This is a 60-year-old male patient with no cardiac history, no line assigner, p ast medical history of TIA, COPD, active tobacco use and dependence, marijuana use and alcohol use. Patient gives history of having episodes of chest pain for the past month that lasted 4-5 minutes and usually go away on their own. Yesterday he developed chest pain in the left side of his chest when up to his shoulder. No radiation to his neck. He felt short of breath and sweaty. He states his systolic house was sitting on his chest. This time the pain did not resolve on its own. Patient had previous heart catheterization in 2016 which revealed mild plaque. Echocardiogram at that time showed an EF of 60-65% with mild mitral regurgitation. Patient does not follow up with line assigner. Patient does smoke 2 packs of cigarettes per day for 50 years, regular marijuana use. He also has history of alcohol abuse drinking every day but has cut back over the past 1 month due to "stomach issues." Patient has history that his sister recently of congestive heart failure. His father at age 48 from myocardial infarction grandfather at age 76 from myocardial infarction. He came into [facility] as an emergency center for evaluation was found to have troponins of 0.025, 0.080, 0.092. Other lab work of note was initial white count of 15.1 which resolved to 9.3. Chloride 108. BUN 19 and creatinine 0.98. Liver function tests were normal. Coronavirus PCR not detected. He was afebrile, heart rate in the 60s, blood pressure 118/85, pulse ox 94% on room air. EKG revealed sinus rhythm. Chest x-ray reveals discoid atelectasis or infiltrate left lower lobe. Patient's been started on heparin drip, Nitropaste and Lopressor which was held this morning due to heart rate of 47. At the time of evaluation, chest pain is minimal. He is complaining of significant headache since he was started on Nitropaste yesterday. 08/11: Echocardiogram reveals EF of 55-60%, trace mitral regurgitation, trace tricuspid regurgitation. Patient underwent heart catheterization yesterday that showed no significant obstructive coronary artery disease. He denies having any chest pain or shortness of breath, no lightheadedness or dizziness. He has been up and ambulating. traffic monitor specialist is a sinus rhythm in the 40s and 50s. Patient has been advised to stop smoking. Patient is cleared for discharge home today. Plan for follow-up in the office. Physical examination: Gen: This is a 60-year-old male. He is resting in bed appears to be comfortable and in no acute distress. VS: Afebrile, heart rate 47, blood pressure 134/89, pulse ox 96% on room air HEENT: Head is atraumatic, normocephalic. Pupils equal, round. Sclerae is anicteric. NECK: Supple. No JVD. No lymphadenopathy. No thyromegaly. LUNGS: A few scattered rhonchi. No intercostal retractions. HEART: Distant heart sounds. Regular rate and rhythm. No murmur. ABDOMEN: Soft. Bowel sounds are present. No masses. No tenderness. EXTREMITIES: No pedal edema. No calf tenderness. Dorsalis pedis +2 bilaterally NEUROLOGICAL: Patient is awake, alert and oriented x3. Cranial nerves 2 through 12 are grossly intact. Assessment: Non-ST elevated myocardial infarction ruled out by cardiac catheterization Tobacco use and dependence Daily marijuana use Possible left lower lobe pneumonia History of alcohol abuse Family history of coronary artery disease Plan: Continue Lipitor and baby aspirin. patient in follow-up in 1 week in the office. Thank you kindly for this consultation. Nurse practitioner note has been reviewed, I agree with documented findings and plan of care. Patient was seen and examined. Objective - Vital Signs Vital signs: Vital Signs Temp 97.7 F 08/12/21 11:26 Pulse 57 L 08/12/21 11:26 Resp 18 08/12/21 11:26 BP 125/89 08/12/21 11:26 Pulse Ox 96 08/12/21 11:26 Intake & Output 08/11/21 08/12/21 08/12/21 18:59 06:59 18:59 Intake Total 440 180 Output Total 700 880 Balance -260 -880 180 Weight 75.6 kg Intake: IV 125 Intake, IV Titration 75 Amount Sodium Chloride 0.9% 1, 75 000 ml @ 75 mls/hr IV . [id number] ÁNGEL Rx#:[id number] Oral 240 180 Output: Urine 700 880 Other: Voiding Method Urinal Urinal Urinal # Voids 2 - Labs CBC & Chem 7: 08/12/21 03:35 08/12/21 03:35 Labs: Abnormal Lab Results - Last 24 Hours (Table) 08/12/21 Range/Units 03:35 Sodium 134 L (137-145) mmol/L
--- NOTE | 2021-08-12 21:27 | DS ---
DISCHARGE SUMMARY DATE OF SERVICE: 08/12/2021 FINAL DIAGNOSIS: 1. Chest pain, possible acute [id number]-elevation myocardial infarction, status post cardiac catheterization showing only mild coronary artery disease. Final report pending. 2. Increased white count, possibly reactive. 3. Chronic obstructive pulmonary disease. 4. Cerebrovascular accident, transient ischemic attack history. 5. History of gastroesophageal reflux disease. 6. History of gastrointestinal bleed. 7. History of prostate disorder. 8. History of seizure disorder. 9. History of transient ischemic attack. 10.History of irritable bowel syndrome. 11.History of cardiac catheterization. 12.History of colonoscopy. 13.History of continued ongoing nicotine dependence. 14.History of THC. 15.Bradycardia, sinus. 16.FULL CODE. DISCHARGE DISPOSITION: The patient will be discharged in stable condition with guarded prognosis. HISTORY OF PRESENT ILLNESS: This 60-year-old gentleman with a past medical history of multiple medical problems was admitted chest pain, possible acute uob-SB-xsjcrey-elevation myocardial infarction, treated symptomatically. Cardiology performed a cardiac catheterization. Troponins were elevated up to 0.092. Cardiac cath showed minimal coronary artery disease. Final reports are pending at this time. Cardiology cleared the patient for discharge. The patient will be discharged in stable condition with guarded prognosis. Smoking cessation has been advised. On exam, vitals are stable. CARDIOVASCULAR: S1, S2 muffled. ABDOMEN: Soft. NERVOUS SYSTEM: No focal deficit. DISCHARGE ADVICE AND MEDICATIONS: 1. Diet is cardiac. 2. Activity limited until followup. 3. Follow up with Dr. Enamorado in 2-3 days. 4. Follow up with Dr. Constantino as recommended. 5. Fioricet as before. 6. Neurontin 600 mg p.o. q.i.d. 7. Ecotrin 81 mg daily. 8. Habitrol 14 daily. 9. Lipitor 10 mg p.o. daily. 10.No beta blockers because of bradycardia. Once again, the patient will be discharged in stable condition with guarded prognosis. MMODL / IJN: [id number] /
== END 2021-08-12 13:04 | disposition home or self-care (01) | DRG 281 ==
LOC: EC 11:56 → 6NMEDSUR 14:02 → 3SCARD 17:51 → OBSVTOIN 08-11 12:33
PROVIDERS: ADMIT Internal Medicine; ATTEND Internal Medicine
PROC: B2111ZZ Fluoroscopy of Multiple Coronary Arteries using Low Osmolar Contrast (ICD-10-PCS; 2021-08-11)
PROC: 4A023N7 Measurement of Cardiac Sampling and Pressure, Left Heart, Percutaneous Approach (ICD-10-PCS; principal; 2021-08-11 11:54)
DX: I21.4 Non-ST elevation (NSTEMI) myocardial infarction (principal); I67.89 Other cerebrovascular disease; F17.210 Nicotine dependence, cigarettes, uncomplicated; G40.909 Epilepsy, unspecified, not intractable, without status epilepticus; I25.10 Atherosclerotic heart disease of native coronary artery without angina pectoris; J44.9 Chronic obstructive pulmonary disease, unspecified; K21.9 Gastro-esophageal reflux disease without esophagitis; K58.9 Irritable bowel syndrome, unspecified; F10.10 Alcohol abuse, uncomplicated; Z20.822 Contact with and (suspected) exposure to COVID-19; R00.1 Bradycardia, unspecified; Z79.02 Long term (current) use of antithrombotics/antiplatelets; Z80.52 Family history of malignant neoplasm of bladder; Z82.49 Family history of ischemic heart disease and other diseases of the circulatory system; Z86.73 Personal history of transient ischemic attack (TIA), and cerebral infarction without residual deficits
CPT/HCPCS: 36415; 71046; 80048; 80053; 83690; 83735; 84484; 85025; 85610; 85730; 87635; 93005; 93306; 93458; 99285